=== PATIENT | male | born 1990 | race Caucasian/White ===

== ENCOUNTER 2017-06-03 17:36 | Emergency (ER) | payer MEDICARE, OTHER ==
[2017-06-03 17:52] VITALS: BP 100/65; PULSE 75; RESP 18; TEMP 98.8
--- NOTE | 2017-06-03 18:27 | XR ---
EXAMINATION TYPE: XR wrist complete RT DATE OF EXAM: 06/03/2017 COMPARISON: NONE HISTORY: Wrist pain TECHNIQUE: 4 views FINDINGS: Carpal bones appear intact. I see no fracture nor dislocation. IMPRESSION: Negative right wrist exam.
--- NOTE | 2017-06-03 19:03 | ED ---
Trauma HPI - General Chief Complaint: Extremity Injury, Upper Stated Complaint: Wrist pain Time Seen by Provider: 06/03/17 18:54 Source: patient, RN notes reviewed Mode of arrival: ambulatory Limitations: no limitations - History of Present Illness Initial Comments: This is a pleasant 26-year-old male who injured his right wrist yesterday when he dropped an object on it. His complaint of pain to the dorsum of the right wrist. No distal paresthesias. No pain into the hand. No pain in the forearm. No other injuries. MD Complaint: injury - Related Data Home Medications Medication Instructions Recorded Confirmed Calcium Carbonate [Tums] 500 mg PO BID PRN 06/03/17 06/03/17 Ibuprofen [Motrin Ib] 400 mg PO Q6HR PRN 06/03/17 06/03/17 Allergies Allergy/AdvReac Type Severity Reaction Status Date / Time No Known Allergies Allergy Verified 06/03/17 18:45 Review of Systems ROS Statement: Those systems with pertinent positive or pertinent negative responses have been documented in the HPI. ROS Other: All systems not noted in ROS Statement are negative. Past Medical History Past Medical History: No Reported History History of Any Multi-Drug Resistant Organisms: None Reported Past Surgical History: No Surgical Hx Reported Past Psychological History: Depression Smoking Status: Never smoker Past Alcohol Use History: None Reported Past Drug Use History: None Reported Additional History: Reviewed General Exam - General Exam Comments Initial Comments: Thin-appearing 26-year-old male in no distress Limitations: no limitations Head exam: Present: atraumatic, normocephalic, normal inspection Eye exam: Present: normal appearance, EOMI Neck exam: Present: normal inspection Respiratory exam: Present: normal lung sounds bilaterally. Absent: respiratory distress, wheezes, rales, rhonchi, stridor Cardiovascular Exam: Present: regular rate, normal rhythm, normal heart sounds. Absent: systolic murmur, diastolic murmur, rubs, gallop, clicks Right Elbow exam: Present: normal inspection, full ROM. Absent: tenderness Forearm Wrist exam: Present: normal inspection. Absent: tenderness, swelling Hand Wrist exam: Present: full ROM, tenderness (Mild tenderness to the dorsum of the right wrist. No crepitus or deformity, no snuffbox tenderness). Absent : swelling, abrasion, laceration, ecchymosis, deformity, crepitus, dislocation, erythema, amputation, nail avulsion, subungual hematoma Neuro motor exam: Present: wrist extension intact, thumb opposition intact, thumb IP flexion intact, thumb adduction intact, fingers 2-5 abduction intact Neurosensory exam: Present: radial nerve intact Vascular: Present: normal capillary refill, radial pulse (2+). Absent: vascular compromise, Pallo, pulse deficit radial art, pulse deficit ulnar art Back exam: Present: normal inspection Neurological exam: Present: alert, oriented X3, CN II-XII intact Psychiatric exam: Present: normal affect, normal mood Skin exam: Present: warm, dry, intact, normal color. Absent: rash Course Vital Signs 06/03/17 17:50 Temperature 98.8 F Pulse Rate 75 Respiratory 18 Rate Blood Pressure 100/65 O2 Sat by Pulse 98 Oximetry Medical Decision Making - Medical Decision Making Patient appears have mild contusion involving the dorsum of the right wrist. There is no evidence of fracture as read by radiology. Patient be treated conservatively with an Jona wrap and [id number] ibuprofen. Disposition Clinical Impression: Contusion of right wrist, initial encounter Disposition: HOME SELF-CARE Condition: Good Instructions: Wrist Injury (ED) Additional Instructions: Jona wrap, [id number] ibuprofen. Follow-up as directed if needed Referrals: Jerardo Salinas DO [Doctor of Osteopathic Medicine] - 1-2 days Time of Disposition: 19:02
== END 2017-06-03 19:24 | disposition home or self-care (01) ==
LOC: EC 17:36
DX: S60.211A Contusion of right wrist, initial encounter (principal); W20.8XXA Other cause of strike by thrown, projected or falling object, initial encounter
CPT/HCPCS: 99283

== ENCOUNTER 2020-08-22 13:15 | Emergency (ER) | payer MEDICARE, OTHER ==
[2020-08-22 13:24] VITALS: BP 95/62; PULSE 82; RESP 20; TEMP 97.6
[2020-08-22 14:09] LABS: Basophils # (A) 0.1 k/uL (0-0.2); Basophils % (A) 1 %; Eosinophils # (A) 0.2 k/uL (0-0.7); Eosinophils % (A) 2 %; HCT 39.4 % (39.0-53.0); HGB 13.2 gm/dL (13.0-17.5); Lymphocytes # (A) 1.5 k/uL (1.0-4.8); Lymphocytes % (A) 11 %; MCH 23.6 pg (25.0-35.0); MCHC 33.5 g/dL (31.0-37.0); MCV 70.5 fL (80.0-100.0); Mean Platelet Volume 6.8; Microcytosis Moderate; Monocytes # (A) 0.9 k/uL (0-1.0); Monocytes % (A) 7 %; Neutrophils # (A) 10.6 k/uL (1.3-7.7); Neutrophils % (A) 80 %; Platelet Count 371 k/uL (150-450); RBC 5.59 m/uL (4.30-5.90); RDW 15.8 % (11.5-15.5); WBC 13.3 k/uL (3.8-10.6)
[2020-08-22 14:22] LABS: ALT 15 U/L (4-49); AST 18 U/L (17-59); African American GFR (CKD) >90 (>60 ml/min/1.73 sqM); Albumin 3.8 g/dL (3.5-5.0); Alkaline Phosphatase 129 U/L (38-126); Anion Gap 11 mmol/L; Blood Urea Nitrogen 13 mg/dL (9-20); Calcium 9.2 mg/dL (8.4-10.2); Carbon Dioxide 23 mmol/L (22-30); Chloride 104 mmol/L (98-107); Glucose 96 mg/dL (74-99); Non-African American GFR(CKD) >90 (>60 ml/min/1.73 sqM); Potassium 4.1 mmol/L (3.5-5.1); Sodium 138 mmol/L (137-145); Total Bilirubin 0.3 mg/dL (0.2-1.3); Total Protein 6.8 g/dL (6.3-8.2)
--- NOTE | 2020-08-22 14:35 | US ---
EXAMINATION TYPE: US venous doppler duplex LE BI DATE OF EXAM: 08/22/2020 2:27 PM COMPARISON: NONE CLINICAL HISTORY: bilateral LE edema. SIDE PERFORMED: Bilateral TECHNIQUE: The lower extremity deep venous system is examined utilizing real time linear array sonog heide with graded compression, doppler sonography and color-flow sonography. VESSELS IMAGED: Common Femoral Vein Deep Femoral Vein Greater Saphenous Vein * Femoral Vein Popliteal Vein Small Saphenous Vein * Proximal Calf Veins (* superficial vessels) Right Leg: Negative for DVT Left Leg: Negative for DVT IMPRESSION: 1. No evidence of deep venous thrombosis in the bilateral lower extremity veins.
--- NOTE | 2020-08-22 15:12 | ED ---
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 She notes that his bilateral lower legs were little bit swollen more than usual. Patient was denying any pain or discomfort decreased range of motion or strength. Patient was a well-appearing 29-year-old male was well- hydrated. Patient denied any weakness numbness tingling decreased range of motion sensation in his bilateral lower extremities. He denied any chest pain short of breath headache nausea vomiting diarrhea constipation fever fatigue chills. - Related Data Home Medications Medication Instructions Recorded Confirmed Calcium Carbonate [Tums] 500 mg PO BID PRN 06/03/17 06/03/17 Ibuprofen [Motrin Ib] 400 mg PO Q6HR PRN 06/03/17 06/03/17 Previous Rx's Medication Instructions Recorded Cephalexin [Keflex] 500 mg PO Q6HR #40 cap 08/22/20 Allergies Allergy/AdvReac Type Severity Reaction Status Date / Time No Known Allergies Allergy Verified 08/22/20 13:24 Review of Systems ROS Statement: Those systems with pertinent positive or pertinent negative responses have been documented in the HPI. ROS Other: All systems not noted in ROS Statement are negative. Past Medical History Past Medical History: No Reported History History of Any Multi-Drug Resistant Organisms: None Reported Past Surgical History: No Surgical Hx Reported Past Psychological History: Depression Smoking Status: Never smoker Past Alcohol Use History: None Reported Past Drug Use History: None Reported General Exam Limitations: no limitations General appearance: alert, in no apparent distress Head exam: Present: atraumatic, normocephalic, normal inspection Eye exam: Present: normal appearance, PERRL, EOMI. Absent: scleral icterus, conjunctival injection, periorbital swelling Neck exam: Present: normal inspection Respiratory exam: Present: normal lung sounds bilaterally. Absent: respiratory distress, wheezes, rales, rhonchi, stridor Cardiovascular Exam: Present: regular rate, normal rhythm, normal heart sounds. Absent: systolic murmur, diastolic murmur, rubs, gallop, clicks GI/Abdominal exam: Present: soft, normal bowel sounds. Absent: distended, tenderness, guarding, rebound, rigid Extremities exam: Present: normal inspection, full ROM, normal capillary refill, other (Minimal swelling in bilateral lower extremities more so on the right than the left.). Absent: tenderness, pedal edema, joint swelling, calf tenderness Neurological exam: Present: alert, oriented X3 Psychiatric exam: Present: normal affect, normal mood Skin exam: Present: warm, dry, intact, normal color. Absent: rash Course Vital Signs 08/22/20 13:19 Temperature 97.6 F Pulse Rate 82 Respiratory 20 Rate Blood Pressure 95/62 O2 Sat by Pulse 96 Oximetry Medical Decision Making - Medical Decision Making 29-year-old male complaining of bilateral lower extremity swelling. Labs, bilateral lower extremity ultrasound ordered. Labs unremarkable, ultrasound negative for any DVT. If any clinical symptoms and mild erythema most likely a mild case of cellulitis. Case discussed with Dr. Cherry, patient can discharge home table condition with follow-up primary care. - Lab Data Result diagrams: 08/22/20 13:59 08/22/20 13:59 Lab Results 08/22/20 08/22/20 Range/Units 13:59 13:59 WBC 13.3 H (3.8-10.6) k/uL RBC 5.59 (4.30-5.90) m/uL Hgb 13.2 (13.0-17.5) gm/dL Hct 39.4 (39.0-53.0) % MCV 70.5 L (80.0-100.0) fL MCH 23.6 L (25.0-35.0) pg MCHC 33.5 (31.0-37.0) g/dL RDW 15.8 H (11.5-15.5) % Plt Count 371 (150-450) k/uL MPV 6.8 Neutrophils % 80 % Lymphocytes % 11 % Monocytes % 7 % Eosinophils % 2 % Basophils % 1 % Neutrophils # 10.6 H (1.3-7.7) k/uL Lymphocytes # 1.5 (1.0-4.8) k/uL Monocytes # 0.9 (0-1.0) k/uL Eosinophils # 0.2 (0-0.7) k/uL Basophils # 0.1 (0-0.2) k/uL Microcytosis Moderate Sodium 138 (137-145) mmol/L Potassium 4.1 (3.5-5.1) mmol/L Chloride 104 (98-107) mmol/L Carbon Dioxide 23 (22-30) mmol/L Anion Gap 11 mmol/L BUN 13 (9-20) mg/dL Creatinine 0.73 (0.66-1.25) mg/dL Est GFR (CKD-EPI)AfAm >90 (>60 ml/min/1.73 sqM) Est GFR (CKD-EPI)NonAf >90 (>60 ml/min/1.73 sqM) Glucose 96 (74-99) mg/dL Calcium 9.2 (8.4-10.2) mg/dL Total Bilirubin 0.3 (0.2-1.3) mg/dL AST 18 (17-59) U/L ALT 15 (4-49) U/L Alkaline Phosphatase 129 H (38-126) U/L Total Protein 6.8 (6.3-8.2) g/dL Albumin 3.8 (3.5-5.0) g/dL - Radiology Data Radiology results: report reviewed, image reviewed bilateral lower extremity US: negative for DVT Disposition Clinical Impression: Cellulitis Disposition: HOME SELF-CARE Condition: Stable Instructions (If sedation given, give patient instructions): Cellulitis (ED) Additional Instructions: Please return to the ED if symptoms worsen take antibiotics as prescribed until complete. increase oral fluids Is patient prescribed a controlled substance at d/c from ED?: No Referrals: Wyatt Young MD [Primary Care Provider] - 1-2 days Time of Disposition: 15:12
== END 2020-08-22 15:34 | disposition home or self-care (01) ==
LOC: EC 13:15
DX: L03.116 Cellulitis of left lower limb (principal); L03.115 Cellulitis of right lower limb; F32.9 Major depressive disorder, single episode, unspecified
CPT/HCPCS: 36415; 80053; 85025; 93970; 99284